=== PATIENT | male | born 1960 | race Caucasian/White ===

== ENCOUNTER 2017-12-03 08:01 | Day surgery (SDC) | payer MEDICAID ==
[~2017-12-03] VITALS: Ht 175.3 cm; Wt 100.2 kg
--- NOTE | ~2017-12-03 | OP ---
PATIENT NAME: FAUSTO VILLARREAL MEDICAL RECORD: [id number] :58 LOCATION:D.[facility] ADMISSION DATE: SURGEON: ALVIN BARNES MD DATE OF OPERATION: 12/03/2017 REFERRING PHYSICIAN: Bandar Osman MD DIAGNOSES: ESRD and inguinal hernia. OPERATION PERFORMED: Creation of left brachiocephalic AV fistula and performance of left upper extremity venogram. SURGEON: Alvin Barnes MD ANESTHESIA: General per LMA by BALANCING MACHINE SET UP WORKER, also regional nerve block. PREOP NOTE: Mr. Villarreal is a very nice 57-year-old white male patient with end-stage renal disease, presently dialyzing with peritoneal catheter. He has a symptomatic reducible inguinal hernia, which needs repair. He has no long-term hemodialysis access. He is brought to the hospital, to the operating room today to create an access. The plan will be to wait until this has matured and provides reliable hemodialysis access before discontinuing peritoneal dialysis for a short period to repair his hernia. PROCEDURE IN DETAIL: Under anesthesia, general and regional block, the patient was prepped and draped in sterile manner. I applied nitroglycerin ointment and used a Franklin drain as proximal venous tourniquet and did an ultrasound exam and saw that the brachial artery was of good quality and good caliber. The basilic and cephalic veins in the upper arm were quite satisfactory for use. I made a transverse antecubital incision and exposed the median cubital veins and median antebrachial vein. I elected to go with the cephalic vein outflow. The tributaries were ligated with clips and 3-0 Vicryl and divided. The vein was beveled and treated with topical papaverine and flushed with heparin and saline. A microcatheter was inserted and a venogram performed by injecting contrast. This column of contrast was followed all the way to the right atrium. There were no obstructions. No other venous abnormality was identified. The brachial artery was then exposed and controlled with Silastic loops. The artery was opened and flushed proximally and distally with heparinized saline. An end-to-side ixos-ts-azjkaa anastomosis was then performed with running 7-0 Prolene. When completed, the suture line was hemostatic and there was excellent flow in the fistula when the loops were released. There was an excellent continuous pulsatile Doppler flow signal as well as a strong palpable thrill. The wound was then closed with interrupted inverted 3-0 Vicryl and running intracuticular 4-0 Monocryl and Dermabond glue. They were dressed with Maxorb Ag, Tegaderm, and Cavilon skin prep. The patient was awakened and taken to recovery room. I expect the patient will go home today and follow up with me in my office and have a dressing change next week. In the meantime, he can leave the original operative dressing intact and wash over with soap and water in the shower as needed. He is to continue all of same medications, diet, and dialysis routine. He will wear a sling for his left arm for little while until the regional nerve block wears off. Blood loss during the operation was trivial, possibly 5 cc, and certainly was not replaced. No drain was used and no surgical specimen was OPERATIVE REPORT [id number] FAUSTO VILLARREAL submitted for histopathology. TRANSINT:[id number] Voice Confirmation ID: [id number] DOCUMENT ID: [id number] ALVIN BARNES MD at 1410 CC: BANDAR OSMAN [id number] DICTATION DATE: 12/03/17 1450 HYDROLOGICAL TECHNICAL OFFICER: 12/03/17 1517 [facility] 12/03/17 [facility] [address] [place] [address]
[2017-12-03 08:18] LABS: BASOPHILS 0.1 % (0-2); EOSINOPHILS 0 % (0-7); HEMATOCRIT 35.2 % (42.0-54.0); HEMOGLOBIN 11.9 g/dL (13.5-17.5); IMMATURE GRANULOCYTES 0.3 % (0-5); LYMPHOCYTES 6.3 % (15-50); MCH 29.8 pg (26.0-34.0); MCHC 33.8 g/dL (31.0-37.0); MEAN PLATELET VOLUME 10.3 fL (7.4-10.4); MONOCYTES 5.6 % (2-11); NEUTROPHILS 87.7 % (40-80); PLATELET COUNT 218 10x3/uL (130-400); RDW 13.9 % (11.5-14.5); WBC 15.8 10x3/uL (4.8-10.8)
[2017-12-03 08:29] LABS: APTT 26.4 SECONDS (22.8-39.4); INR 1.11 (0.85-1.17); PROTIME 13.8 SECONDS (11.6-15.0)
[2017-12-03 08:37] LABS: ANION GAP 16.7 mmol/L (8-16); CALCIUM 9.8 mg/dL (8.5-10.1); CARBON DIOXIDE 25.5 mmol/L (21.0-32.0); CREATININE - SERUM 7.4 mg/dL (0.6-1.3); POTASSIUM - SERUM 4.2 mmol/L (3.5-5.1)
[2017-12-03 10:04] VITALS: Ht 175.3 cm; Wt 100.2 kg
[2017-12-03] MEDS ORDERED: PREDNISONE10 MG (10:27)
[2017-12-03] MEDS ORDERED: BENADRYL50 MG (10:28)
[2017-12-03] MEDS ORDERED: LASIX80 MG PO (10:28)
[2017-12-03] MEDS ORDERED: COREG25 MG PO (10:29)
[2017-12-03] MEDS ORDERED: ULTRAM50 MG PO ×2 (10:30→14:34)
[2017-12-03] MEDS ORDERED: LIPITOR40 MG PO (10:31)
[2017-12-03] MEDS ORDERED: NORVASC10 MG PO (10:36)
[2017-12-03] MEDS ORDERED: NEURONTIN 300300 MG PO (10:39)
[2017-12-03] MEDS ORDERED: ASPIRIN325 MG PO (10:40)
[2017-12-03] MEDS ORDERED: RENAGEL800 MG PO (10:40)
[2017-12-03] MEDS ORDERED: ROCALTROL0.5 MCG PO (10:44)
[2017-12-03] MEDS ORDERED: OMEPRAZOLE20 M1 PO (11:09)
[2017-12-03] MEDS ORDERED: SENSIPAR30 MG PO (11:10)
[2017-12-03] MEDS ORDERED: LEVEMIR100 U/M1 SC (11:12)
[2017-12-03] MEDS ORDERED: HUMULIN R100 U/ML (11:16)
[2017-12-03] MEDS ORDERED: RENVELA800 MG PO (11:17)
[2017-12-03] MEDS ORDERED: GENTAMICIN SULF30 G1 TOPICAL (11:19)
== END 2017-12-03 16:50 | disposition home or self-care (01) ==
LOC: D.OPS 08:01
PROVIDERS: Surgery
DX: I12.0 Hypertensive chronic kidney disease with stage 5 chronic kidney disease or end stage renal disease (principal); E11.22 Type 2 diabetes mellitus with diabetic chronic kidney disease; N18.6 End stage renal disease; Z99.2 Dependence on renal dialysis; Z86.73 Personal history of transient ischemic attack (TIA), and cerebral infarction without residual deficits; K40.90 Unilateral inguinal hernia, without obstruction or gangrene, not specified as recurrent

== ENCOUNTER 2018-06-20 06:07 | Day surgery (SDC) | payer MEDICARE ==
[2018-06-19 15:47] LABS: BASOPHILS 0.5 % (0-2); EOSINOPHILS 3.6 % (0-7); HEMATOCRIT 34.2 % (42.0-54.0); HEMOGLOBIN 11.3 g/dL (13.5-17.5); IMMATURE GRANULOCYTES 0.2 % (0-5); LYMPHOCYTES 21.2 % (15-50); MCV 87.7 fL (80.0-100.0); MEAN PLATELET VOLUME 10.1 fL (7.4-10.4); MONOCYTES 9.5 % (2-11); PLATELET COUNT 211 10x3/uL (130-400); RDW 14.6 % (11.5-14.5)
[2018-06-19 15:50] LABS: APTT 30.5 SECONDS (22.8-39.4); INR 1.11 (0.85-1.17); PROTIME 13.8 SECONDS (11.6-15.0)
[2018-06-19 15:51] LABS: ANION GAP 18.7 mmol/L (8-16); CALCIUM 9.2 mg/dL (8.5-10.1); CARBON DIOXIDE 23.4 mmol/L (21.0-32.0); CREATININE - SERUM 7.4 mg/dL (0.6-1.3); POTASSIUM - SERUM 4.1 mmol/L (3.5-5.1)
[~2018-06-20] VITALS: Ht 175.3 cm; Wt 94.8 kg
[~2018-06-20 06:07] MED LIST: ASPIRIN325 MG PO; BENADRYL50 MG; COREG25 MG PO; GENTAMICIN SULF30 G1 TOPICAL; HUMULIN R100 U/ML; LASIX80 MG PO; LEVEMIR100 U/M1 SC; LIPITOR40 MG PO; NEURONTIN 300300 MG PO; NORVASC10 MG PO; OMEPRAZOLE20 M1 PO; PREDNISONE10 MG; RENAGEL800 MG PO; RENVELA800 MG PO; ROCALTROL0.5 MCG PO; SENSIPAR30 MG PO; ULTRAM50 MG PO
[2018-06-20 06:23] VITALS: Ht 175.3 cm; Wt 94.8 kg
[2018-06-20] MEDS ORDERED: DILAUDID2 MG PO (09:46)
--- NOTE | 2018-06-20 10:10 | NUR ---
REC'D FROM RR. FAMILY/FRIEND AT BEDSIDE. DRESSING CDI TO RIGHT GROIN AREA. ICE WATER BROUGHT TO PT.
--- NOTE | 2018-06-20 10:45 | NUR ---
SPOKE WITH RISA DEVI REGARDING DR BARNES'S ORDER TO HOLD OFF ON PD AND BEGAN HEMODIALYSIS UNTIL CLEARED BY HIM.
--- NOTE | 2018-06-20 11:00 | NUR ---
JASWINDER ELLISYazmin SERVED TO PATIENT.
--- NOTE | 2018-06-20 11:10 | NUR ---
Denise ESQUIVEL, ANP HERE AND SPOKE WITH PATIENT REGARDING A CHANGE IN DIALYSIS AND GAVE HIM A CHAIR TIME IN [place] FOR SaturdayJULY 01 AT 0700. INFORMED HIM HE WILL DIALYZE ON LSCI-[id number]-RAI UNTIL CLEARED BY DR BARNES. VERBALIZED UNDERSTANDING.
--- NOTE | 2018-06-22 19:09 | OP ---
PATIENT NAME: FAUSTO VILLARREAL MEDICAL RECORD: [id number] :58 LOCATION:[facility] ADMISSION DATE: SURGEON: ALVIN BARNES MD DATE OF OPERATION: 06/20/2018 REFERRED BY: Bandar Osman MD PREOPERATIVE DIAGNOSES: Right indirect inguinal hernia, end-stage renal disease and dependence on dialysis. POSTOPERATIVE DIAGNOSES: Right indirect inguinal hernia, end-stage renal disease and dependence on dialysis. SURGEON: Alvin Barnes MD ANESTHESIA: General with LMA per [facility] [employer] [facility]. OPERATION PERFORMED. Repair of right indirect inguinal hernia with Bard Marlex plug and patch, size extra-large. PREOPERATIVE NOTE: Mr. Villarreal is a 57-year-old white male patient with end-stage renal disease, stable on peritoneal dialysis who has developed a large reducible right inguinal hernia. He is brought to the operating room for its repair. DESCRIPTION OF PROCEDURE: Under general anesthesia in supine position, the patient was prepped and draped in sterile manner. A transverse incision was made and the soft tissues divided with electrocautery down to the external oblique aponeurosis, which was opened parallel to its fibers through the external ring. The cord was mobilized and cremasteric and fatty tissues divided with electrocautery and a large indirect inguinal hernia sac was dissected from the cord structures. It was ligated above the level of the internal ring with 3-0 Vicryl and the redundant sac was excised and sent to pathology for histopathology. The internal ring was then filled with a size extra-large Marlex light plug. This was sutured with interrupted 3-0 Vicryl sutures to the margins of the internal ring and the floor of the canal was then covered with a Marlex patch, which was sutured to the shelving edge of inguinal ligament inferiorly to the pubic tubercle medially and to the internal oblique aponeurosis and fascia superiorly and laterally. The patch was cut so that its arms would embrace the spermatic cord at the level of the internal ring, creating a new internal ring and the wound was then infiltrated generously with 0.25% Marcaine without epinephrine. The external oblique aponeurosis was then approximated over the cord with interrupted 3-0 Vicryl. The Miranda's fascia was approximated with interrupted inverted 3-0 Vicryl and skin was closed with running intracuticular 4-0 Monocryl. The incision was sealed with glue and dressed with Maxorb Ag, Tegaderm, and Cavilon skin prep and the patient awakened and taken to the recovery room. Blood loss during the operation was about 5 cc. None was replaced. Sponges, instruments, and needles were accounted for. No drain was used. The surgical specimen consisted of the indirect inguinal hernia sac. PLAN: The patient will go home today and use ice off and on. He is given a prescription for Dilaudid 2 mg 10 tablets. He can take 1 every 6 hours as needed for pain. He is encouraged if possible instead to take plain Tylenol, use ice off and on and wear briefs or a jockey strap or athletic supporter as needed for comfort. I will have him back to see me in my office in about 10 OPERATIVE REPORT [id number] FAUSTO VILLARREAL days to 2 weeks. In the meantime, starting tomorrow, he is to do hemodialysis instead of peritoneal dialysis and he will continue on hemo until I have released him. TRANSINT:[id number] Voice Confirmation ID: [id number] DOCUMENT ID: [id number] ALVIN ABRNES MD at 1909 CC: BANDAR OSMAN [id number] DICTATION DATE: 06/20/18 0959 BETTING CLERKS: 06/20/18 1046 [facility] 06/20/18 [facility] [address] [place] [address]
== END 2018-06-20 12:40 | disposition home or self-care (01) ==
LOC: D.OPS 06:07
PROVIDERS: Anesthesiology; Surgery
DX: K40.90 Unilateral inguinal hernia, without obstruction or gangrene, not specified as recurrent (principal); N18.6 End stage renal disease; Z99.2 Dependence on renal dialysis

== ENCOUNTER 2018-11-07 23:15 | Inpatient (IN) | payer MEDICARE ==
[~2018-11-07 23:15] MED LIST changes: +DILAUDID2 MG PO
--- NOTE | 2018-11-08 01:00 | NUR ---
RECEIVED FROM [facility] IN [place], PLACED ON TELEMTRY, PT HAS LAVF AND PD CATH, R.HAND-IV, HISTORY AND MEDS COMPLETE, FAMILY AT BEDSIDE, CALL LIGHT IN REACH, WILL CONTINUE PLAN OF CARE
[2018-11-08] MEDS ORDERED: LEVODOPA (01:02)
[2018-11-08] MEDS ORDERED: LIPITOR40 MG PO (01:02)
[2018-11-08] MEDS ORDERED: CARBIDOPA (01:02)
[2018-11-08 02:02] VITALS: BP 206/91; BMI 29.6
[2018-11-08 02:19] LABS: BASOPHILS 0.5 % (0-2); EOSINOPHILS 2.2 % (0-7); HEMATOCRIT 27.4 % (42.0-54.0); IMMATURE GRANULOCYTES 0.5 % (0-5); LYMPHOCYTES 24.9 % (15-50); MCH 28.5 pg (26.0-34.0); MCHC 32.8 g/dL (31.0-37.0); MCV 86.7 fL (80.0-100.0); MEAN PLATELET VOLUME 8.9 fL (7.4-10.4); MONOCYTES 9.8 % (2-11); NEUTROPHILS 62.1 % (40-80); PLATELET COUNT 198 10x3/uL (130-400); RBC 3.16 10x6/uL (4.20-6.10); RDW 15.2 % (11.5-14.5); WBC 12.9 10x3/uL (4.8-10.8)
[2018-11-08 02:30] VITALS: BP 156/82
[2018-11-08 02:55] LABS: ALBUMIN 2.9 g/dL (3.4-5.0); ALKALINE PHOSPHATASE 82 U/L (46-116); ALT (SGPT) 11 U/L (10-68); BILIRUBIN - TOTAL 0.63 mg/dL (0.2-1.3); CALCIUM 8.5 mg/dL (8.5-10.1); CARBON DIOXIDE 24.1 mmol/L (21.0-32.0); CHLORIDE - SERUM 100 mmol/L (98-107); CKMB 2.2 U/L (0.0-3.6); CREATINE KINASE 96 UL (21-232); CREATININE - SERUM 13.3 mg/dL (0.6-1.3); MAGNESIUM - SERUM 2.1 mg/dL (1.8-2.4); POTASSIUM - SERUM 4.3 mmol/L (3.5-5.1); PROTEIN - SERUM 6.7 g/dL (6.4-8.2); SODIUM 140 mmol/L (136-145); UREA NITROGEN 77 mg/dL (7-18); eGFR NON AFRICAN AMERICAN 4 mL/min (90-120)
[2018-11-08 02:56] LABS: CALC OSMOLALITY 302 mosm/kg (275-300); GLUCOSE 124 mg/dL (74-106)
[2018-11-08 02:58] LABS: TROPONIN-I 0.144 ng/mL (0.000-0.060)
[2018-11-08 04:00] VITALS: BP 117/59
[2018-11-08 06:51] VITALS: BMI 29.5
--- NOTE | 2018-11-08 07:00 | NUR ---
RECEIVED REPORT. ASSUMED CARE OF PATIENT. CALL LIGHT WITHIN REACH. PATIENT EASILY AROUSED. RESP EVEN AND UNLABORED. FEMALE AT BEDSIDE IN CHAIR ASLEEP. NO DISTRESS. DENIES NEEDS AT THIS TIME.
[2018-11-08 08:10] VITALS: BP 143/74
[2018-11-08] MEDS ORDERED: PROTONIX20 MG PO (09:21)
[2018-11-08 09:46] VITALS: BMI 29.5
--- NOTE | 2018-11-08 10:25 | NUR ---
EKG COMPLETE AT THIS TIME. NSR. RATE 77
--- NOTE | 2018-11-08 11:00 | NUR ---
NEW ORDER RECIEVED FOR PD AT THIS TIME. PD FLUID NEEDS TO WARM. PD FLUID PLACED TO WARM H2O FOR WARMING. PATIENT MADE AWARE OF NEW ORDERS.
[2018-11-08 11:15] LABS: % SATURATION 53 % (15-55); IRON 92 ug/dl (35-150); TOTAL IRON BIND CAPACITY 173 ug/dl (260-445); UNSAT IRON BIND CAPACITY 81 ug/dl (150-375)
[2018-11-08 11:32] LABS: CKMB 2.8 U/L (0.0-3.6); CREATINE KINASE 110 UL (21-232)
[2018-11-08 11:38] LABS: TROPONIN-I 0.144 ng/mL (0.000-0.060)
[2018-11-08 11:40] VITALS: BP 168/75
--- NOTE | 2018-11-08 11:44 | NUR ---
HARDWOOD FLOOR SANDER AT BEDSIDE AT THIS TIME FOR ECHO.
--- NOTE | 2018-11-08 12:01 | NUR ---
2ND PREPARATION SUPERVISOR FREEZING WAITING IN LINE AT PATIENT DOOR TO DO PROCEDURE. STILL UNABLE TO DO PD DUE TO ECHO'S AND ULTRASOUNDS ORDERED.
--- NOTE | 2018-11-08 12:25 | NUR ---
PATIENT NOW EATING. INFORMED PATIENT PD WILL TAKE PLACE SOON HE IS FINISHED EATING.
--- NOTE | 2018-11-08 12:57 | NUR ---
PATIENT RECEIVING PD AT THIS TIME. NO DISTRESS.
[2018-11-08 15:51] LABS: CKMB 2.9 U/L (0.0-3.6); CREATINE KINASE 120 UL (21-232)
[2018-11-08 15:55] LABS: TROPONIN-I 0.135 ng/mL (0.000-0.060)
--- NOTE | 2018-11-08 16:21 | NUR ---
PATIENT IS UNABLE TO HAVE MRI AT THIS TIME DUE TO METAL CONNECTOR ON PD CATH. METAL CONNECTOR IS ON TUBING THAT IS UNABLE TO BE REMOVED FROM PATIENT. CALLED PHIL ESQUIVEL AND SHE SAID UNTIL WE CAN FIND OUT EXACTLY WHAT THE PART IS MADE OF, CANCEL THE MRI. , RADIOLOGIST WILL NOT PROCEEDE WITH THE MRI UNTIL SERIAL NUMBERS ARE PROVIDED AND THE PART IS ABLE TO BE RESEARCHED THE MRI COULD CAUSE HARM TO THE PATIENT(BURNED OR CATHETER RIPPED OUT). PHIL SAID IS HAS TO BE PAGED OR IS CALLED THEN LET HIM KNOW AT THAT TIME WHY THE MRI WAS NOT COMPLETED. THIS TRY OUT PERSON WORKING TO CONTACT FACILITY THAT PLACED PD CATH TO GAIN ADDITIONAL INFORMATION.
--- NOTE | 2018-11-08 16:30 | NUR ---
PATIENT HAS METAL ON PD CATHETER. UNKNOWN TYPE OR BRAND. PATIENT DOES NOT KNOW WHICH DR PUT IT IN OR WHICH HOSPITAL IT WAS PUT IN. YULIET, NURSE, AND PHIL, NURSE PRACTIONER, NOTIFIED CANNOT DO MRI UNTIL THIS IS CLEARED, PER DR MUSTAFA.
--- NOTE | 2018-11-08 17:08 | NUR ---
SITTING TO SIDE OF BED CONSUMING PM MEAL. WILL START PD AFTER PATIENT HAS FINISHED EATING DINNER.
--- NOTE | 2018-11-08 18:34 | NUR ---
PATIENT VERY SLOW TO FILL WITH PD. STILL FILLING AT THIS TIME AND FILL TIME WAS INITIATED AT 181. SLOW BUT STEADY FILL.
--- NOTE | 2018-11-08 19:23 | NUR ---
RECIEVED LAYING IN BED WITH EYES OPEN AND TV ON. ALERT AND ORIENTED X4. UP AD KAMALA. PD TUBING TO MID LOWER ABD. AVF TO LEFT ARM HAS GOOD BRUI AND TRILL. IV TO RIGHT HAND SL.. TELEMETRY IN PLACE. DENIES ANY NEEDS.
[2018-11-08 20:00] VITALS: BP 168/65
[2018-11-08 21:27] LABS: CKMB 2.8 U/L (0.0-3.6); CREATINE KINASE 125 UL (21-232)
[2018-11-08 21:29] LABS: TROPONIN-I 0.112 ng/mL (0.000-0.060)
[2018-11-09] VITALS: BP 142/106
[2018-11-09 04:00] VITALS: BP 195/75
[2018-11-09 06:20] LABS: BASOPHILS 0.6 % (0-2); HEMATOCRIT 29.1 % (42.0-54.0); HEMOGLOBIN 9.7 g/dL (13.5-17.5); IMMATURE GRANULOCYTES 0.4 % (0-5); LYMPHOCYTES 24.9 % (15-50); MCHC 33.3 g/dL (31.0-37.0); MCV 86.9 fL (80.0-100.0); MEAN PLATELET VOLUME 9.4 fL (7.4-10.4); NEUTROPHILS 61.1 % (40-80); RBC 3.35 10x6/uL (4.20-6.10); RDW 15.1 % (11.5-14.5); WBC 14.2 10x3/uL (4.8-10.8)
[2018-11-09 06:31] LABS: PLATELET COUNT 248 10x3/uL (130-400)
--- NOTE | 2018-11-09 06:36 | NUR ---
CHECKED BLOOD SUGAR EARLIER AND IT WAS 39. GAVE SNACK AND RECHECKED AT 50. REHECK AGAIN AND 75. EATING A SANDWICH BOX AT THIS TIME. PT WAS ABLE TO ANSWER QUESTIONS APPROP. WHEN BLOOD SUGAR 39. DID BECOME DIAPHORETIC AND BED LINENS CHANGED AND GOWN. PT STATES HE HAS FELT THIS WAY BEFORE AND DID NOT KNOW WHAT IT WAS. WILL REPORT TO ONCOMMING.
--- NOTE | 2018-11-09 07:00 | NUR ---
RECEIVED REPORT. ASSUMED CARE OF PATIENT. RESTING AND NOTED TO BE SNORING. AROUSED PATIENT WITH VERBAL AND TOUCH TO SHOULDER. PATIENT ABLE TO ANSWER QUESTIONS APPROPRIATELY AT THIS TIME. NO DISTRESS.
[2018-11-09 07:54] LABS: ANION GAP 26.3 mmol/L (8-16); CALCIUM 9.3 mg/dL (8.5-10.1); CREATININE - SERUM 13.7 mg/dL (0.6-1.3); POTASSIUM - SERUM 4.3 mmol/L (3.5-5.1)
--- NOTE | 2018-11-09 08:00 | NUR ---
DEAN CALLS AT THIS TIME FROM LAB TO REPORT CRITICAL GLUCOSE DRAWN AT 0439 THAT RESULTED AT 39. INFORMED HER WE HAVE ALREADY CHECKED PATIENT X 3 AND TREATED AND PATIENT IS NOW UP TO 75. THANKED HER FOR CALLING THOUGH AT THIS TIME.
[2018-11-09 08:36] VITALS: BP 136/105
[2018-11-09 11:41] VITALS: BP 199/91
--- NOTE | 2018-11-09 11:53 | NUR ---
FSBS 246. 8 UNITS ADMINITERED PER SLIDING SCALE. NO DISTRESS.
[2018-11-09 15:47] VITALS: BP 136/72
--- NOTE | 2018-11-09 16:34 | NUR ---
FSBS 82. NO INSULIN PER SLIDING SCALE.
[2018-11-09 16:56] LABS: MACROPHAGES BF 32 %; MESOTHELIALS BF 11 %; NEUT - BF 7 %
--- NOTE | 2018-11-09 18:06 | NUR ---
TOLERATING PD WELL AT THIS TIME. NO DISTRESS.
--- NOTE | 2018-11-09 19:36 | NUR ---
RECEIVED REPORT, WILL ASSUME CARE OF PT, SITTING ON SIDE OF BED, DENIES ANY NEEDS AT THIS TIME, CALL LIGHT IN REACH, WILL CONTINUE PLAN OF CARE
[2018-11-09 20:36] VITALS: BP 189/88
[2018-11-10] VITALS: BP 160/86
--- NOTE | 2018-11-10 03:03 | NUR ---
I have reviewed this patient and I concur with the Shift Assessment completed by the Licensed Practical Nurse today this shift.
[2018-11-10 04:00] VITALS: BP 159/88
[2018-11-10 05:40] LABS: BASOPHILS 0.9 % (0-2); EOSINOPHILS 2.9 % (0-7); HEMATOCRIT 28.9 % (42.0-54.0); HEMOGLOBIN 9.5 g/dL (13.5-17.5); IMMATURE GRANULOCYTES 0.3 % (0-5); LYMPHOCYTES 24.4 % (15-50); MCH 28.5 pg (26.0-34.0); MCHC 32.9 g/dL (31.0-37.0); MCV 86.8 fL (80.0-100.0); MEAN PLATELET VOLUME 8.9 fL (7.4-10.4); MONOCYTES 9.4 % (2-11); NEUTROPHILS 62.1 % (40-80); PLATELET COUNT 211 10x3/uL (130-400); RBC 3.33 10x6/uL (4.20-6.10); RDW 14.7 % (11.5-14.5); WBC 12.6 10x3/uL (4.8-10.8)
[2018-11-10 06:03] LABS: CALCIUM 9.2 mg/dL (8.5-10.1); CARBON DIOXIDE 22.1 mmol/L (21.0-32.0); CREATININE - SERUM 12.8 mg/dL (0.6-1.3); POTASSIUM - SERUM 4.1 mmol/L (3.5-5.1)
--- NOTE | 2018-11-10 07:37 | NUR ---
REPORT RECEIVED. WILL CONTINUE WITH POC. PT CURRENTLY LYING SUPINE. CALL LIGHT W/I REACH. PT IS CURRENTLY RESTING. RR EVEN AND UNLABORED ON RA. R.UPPER ARM IS SALINE LOCKED. NO S/S OF DISTRESS NOTED. PT DENIES ANY NEEDS AT THIS TIME. WILL CTM.
[2018-11-10 08:25] VITALS: BP 166/41
--- NOTE | 2018-11-10 09:55 | CN ---
PATIENT NAME:FAUSTO HOLLAND MEDICAL RECORD: [id number] : 58 LOCATION:[facility] D.2133 ADMIT DATE: 11/07/18 ACCOUNT: [id number] CONSULTING PHYSICIAN: EITAN CAMPBELL MD REFERRING PHYSICIAN: ANN FERNANDO MD DATE OF CONSULTATION: 11/08/2018 HISTORY OF PRESENT ILLNESS: A 58-year-old gentleman with a history of end-stage renal disease, on peritoneal dialysis, transferred for higher level of care secondary to 3-4 day history of confusion, postural instability, syncope. Reports labile blood pressure, systolic and diastolic. His reports also episodes of hypothermia with a temperature down into the 93 range. He is found to have UTI, was transferred here for further evaluation. PAST MEDICAL HISTORY: Includes; 1. History of diabetes mellitus. 2. Hypertension. 3. Dyslipidemia. 4. Chronic renal insufficiency as described above. 5. Peripheral neuropathy. MEDICATIONS: Typically include insulin per scale, Protonix 20 every day, Lasix 80 every day, aspirin 325 every day, Neurontin 300 at bedtime, tramadol 50 every 6 hours p.r.n., atorvastatin 40 every day, carvedilol 25 every day. ALLERGIES: IODINE, HYDROCODONE. SOCIAL HISTORY: Lives in [place]. He is a nonsmoker. As a general basis, he usually takes of all his ADLs. No set exercise program. REVIEW OF SYSTEMS: The patient reports easy bruising but reports no swollen glands. The patient reports no fever, no night sweats, no significant weight gain, no significant weight loss. No significant exercise tolerance. The patient reports no dry eyes, no irritation, no vision change. Patient reports no difficulty hearing and no ear pain. Patient reports no frequent nose bleeds or nose and sinus problems. Patient reports on arm pain on exertion. No shortness of breath while lying down. No history of heart murmur. Patient reports no cough, no wheezing or coughing up blood. Patient reports no abdominal pain, no vomiting. Normal appetite. No diarrhea and not vomiting blood. No nausea and no constipation. Patient reports no incontinence. No difficulty urinating. No hematuria. No increased frequency. Patient reports no muscle aches. No weakness, no arthralgias, no back pain. No swelling of the extremities. Patient reports no abnormal mole, no jaundice, no rashes. Reports no loss of consciousness. No weakness and no numbness. No seizures, dizziness, or headaches. The patient reports no depression, no sleep disturbance, feeling safe in a relationship and no alcohol abuse. Patient reports on fatigue. Reports no runny nose or sinus pressure. No itching, no hives, and no frequent sneezing. PHYSICAL EXAMINATION: GENERAL: Pleasant gentleman in no acute distress, appears stated age. VITAL SIGNS: Blood pressure 168/75, pulse 70 and regular, temperature currently is normal as well. HEENT: Normocephalic, atraumatic. NECK: No bruits noted. CONSULT REPORT [id number] AMALIAFAUSTO HEART: Regular, II/ systolic ejection murmur. LUNGS: Good air excursion. ABDOMEN: Soft, nontender. EXTREMITIES: Pulses 2+. No edema. EKG without acute change. IMPRESSION: Difficult to interpret elevated troponin in view of chronic renal sufficiency. We will check echocardiographic study for focal wall motion, additionally carotid Doppler given history of syncope. TRANSINT:[id number] Voice Confirmation ID: [id number] DOCUMENT ID: [id number] EITAN CAMPBELL MD at 0955 CC: [id number] DICTATION DATE: 11/08/18 1218 RESIDENTIAL CARE FACILITY MANAGER: 11/08/18 1707 ADM IN [place] [address] [place] [address]
--- NOTE | 2018-11-10 09:55 | EC ---
PATIENT:FAUSTO HOLLAND DATE OF SERVICE: 11/07/18 SEX: M MEDICAL RECORD: [id number] DATE OF : 58 LOCATION:D.M2 D.213 AGE OF PATIENT: 58 ADMISSION DATE: 11/07/18 REFERRING PHYSICIAN: INTERPRETING PHYSICIAN: EITAN CAMPBELL MD ECHOCARDIOGRAM REPORT ECHO CHARGES 4 ECHO COMPLETE Date: 11/08/18 CLINICAL DIAGNOSIS: CHF/SYNCOPE ECHOCARDIOGRAPHIC MEASUREMENTS (adult normal given) AC root (d.<3.7cm) 3.7 cm LV Septum d (<1.2 cm> 1.3 cm Valve Excursion 1.5 cm LV Septum (systole) 1.6 cm Left Atria (s.<4.0cm> 3.9 cm LVPW d(<1.2cm) 1.5 cm RV (d.<2.3cm) 2.9 cm LVPW (sytole) 2.0 cm LV diastole(<5.6CM) 5.9 cm MV E-F(>70mm/sec) cm LV systole 4.0 cm LVOT Diameter 1.9 cm MV exc.(>10mm) cm Est.ejection fraction (50-75%) % DOPPLER: LVIT cm/sec A 113 cm/sec E 89.0 cm/sec LA cm/sec RVSP 29.0 mmHg LVOT 127 cm/sec AOP1/2T m/s Asc. Ao 158 cm/sec RVOT 96.0 cm/sec RA cm/sec PA 106 cm/sec AV Gradient Peak 10.0 mmHg AV Mean 5.2 mmHg AV Area 2.2 cm MV Gradient Peak 6.3 mmHg MV Mean 2.0 mmHg MV Area cm COMMENTS: Separations Scientist: Michelle RODASOE Claim Service Representative: 3 Dr. Grimaldo TAPE# PACS Pericardial Effusion N DATE OF SERVICE: 11/09/2018 Adequate 2-D echo, color-flow and spectral Doppler, and M-mode. Borderline LVH. LV internal dimensions are normal. Wall motion is normal. EF is 55%. Aortic valve sclerosis without stenosis by Doppler interrogation. Left atrium is normal at 3.9 cm. Mitral valve shows no prolapse. Trace MR. Right-sided chambers are grossly normal. Trace TR. TRANSINT:[id number] Voice Confirmation ID: [id number] DOCUMENT ID: [id number] ECHOCARDIOGRAM REPORT [id number] FAUSTO HOLLAND,EITAN Ferreira MD at 0955 CC: [id number] DICTATION DATE: 11/09/18 1131 PROJECT LEAD: 11/09/[address] [facility] [address] [place] [id number]
--- NOTE | 2018-11-10 11:22 | NUR ---
PD PERFORMED. 2299 TAKEN OFF. 1999 INSTILLED. FSBS WAS 258 @1115. 10 UNITS OF INSULIN ADMINSITERED. PT DENIES ANY NEEDS. WILL CTM.
[2018-11-10 11:28] VITALS: BP 135/78
[2018-11-10 15:27] VITALS: BP 155/77
--- NOTE | 2018-11-10 17:57 | NUR ---
PD PERFORMED. 2099 PULLED OFF AND RECORDED. 1999 INSTILLED. PT CURRENTLY LYING SEMI FOWLERS. CALL LIGHT W/I REACH. AAO X4 FAMILY AT BEDSIDE. PT DENIES ANY NEEDS. WILL CTM.
[2018-11-10 20:00] VITALS: BP 162/63
--- NOTE | 2018-11-10 20:34 | NUR ---
EVENING ROUNDS COMPLETED. VSS, AAOX4, NO S/S OF RESP DISTRESS. PD SITE C/D/I. SPOUSE AT BEDSIDE. PT DENIES ANY FURTHER NEEDS AT THIS TIME. WILL CPOC. CL WITHIN REACH.
--- NOTE | 2018-11-10 23:39 | NUR ---
PD STARTED. PT BP 190/67. PRN 0.1MG CLONIDINE GIVEN AT THIS TIME. WILL CTM. CL WITHIN REACH.
[2018-11-11] VITALS: BP 190/67
--- NOTE | 2018-11-11 02:53 | NUR ---
PT R.UPPER ARM PIV INFILTRATED. REMOVED IV, APPLIED 2X2 GAUZE AND TAPED. RESTARTED A NEW PIV R.WRIST 22G X2 STICK PT TOLERATE WELL. PT VOICED THANKS. DENIES ANY FURTHER NEEDS AT THIS TIME. WILL CPOC.
[2018-11-11 04:00] VITALS: BP 147/66
[2018-11-11 06:31] LABS: BASOPHILS 0.5 % (0-2); EOSINOPHILS 2.4 % (0-7); HEMATOCRIT 29.9 % (42.0-54.0); HEMOGLOBIN 9.8 g/dL (13.5-17.5); IMMATURE GRANULOCYTES 0.5 % (0-5); LYMPHOCYTES 24.5 % (15-50); MCH 28.6 pg (26.0-34.0); MCHC 32.8 g/dL (31.0-37.0); MCV 87.2 fL (80.0-100.0); MEAN PLATELET VOLUME 9.6 fL (7.4-10.4); MONOCYTES 12.2 % (2-11); NEUTROPHILS 59.9 % (40-80); PLATELET COUNT 222 10x3/uL (130-400); RBC 3.43 10x6/uL (4.20-6.10); RDW 14.8 % (11.5-14.5); WBC 12.8 10x3/uL (4.8-10.8)
[2018-11-11 06:52] LABS: ANION GAP 20.4 mmol/L (8-16); C-REACTIVE PROTEIN 0.8 mg/dL (0.0-0.9); CALCIUM 9.8 mg/dL (8.5-10.1); CARBON DIOXIDE 25.4 mmol/L (21.0-32.0); CREATININE - SERUM 12.8 mg/dL (0.6-1.3); POTASSIUM - SERUM 3.8 mmol/L (3.5-5.1)
--- NOTE | 2018-11-11 07:39 | NUR ---
ROUNDING DONE WITH PATIENT TELLING ME THAT HE IS BEING DISCHARGED HOME. AWAITING FINAL ORDERS FROM PRIMARY CARE. ON HEART MONITOR SHOWING SR, HR 73. ON ROOM AIR. RIGHT FA PIV SEEN WITH SALINE LOCK. RESE. LEFT ARM WITH AVF, + BRUIT AND THRILL. PD CATH SEEN, ON PD EXCHANGE EVERY 6 HOURS. WILL MONITOR.
[2018-11-11 09:56] VITALS: BP 145/71
[2018-11-11] MEDS ORDERED: LEVEMIR FL100 UNIT/1 SC (12:01)
[2018-11-11] MEDS ORDERED: OMNICEF300 MG PO (12:02)
[2018-11-11 12:10] VITALS: BP 136/73
--- NOTE | 2018-11-11 14:22 | NUR ---
VERBAL AND WRITTEN DISCHARGE INSTRUCTIONS GIVEN TO PATIENT. SALINE LOCK REMOVED WITH CATH TIP INTACT. DISCHARGED HOME VIA WHEELCHAIR.
[2018-11-11 15:12] LABS: FOLATE (FOLIC ACID) - SERUM 7.3 ng/mL (>3.0)
--- NOTE | 2018-11-11 17:14 | MORECARE ---
CASE MANAGEMENT DISCHARGE SUMMARY PATIENT: FAUSTO HOLLAND UNIT: [id number] ADM DATE: 11/07/18 AGE: 58 : 58 SEX: M ROOM/BED: D.2133 AUTHOR: ANGEL,DOC PHYSICIAN: REFERRING PHYSICIAN: ANN FERNANDO MD DATE OF SERVICE: 11/11/18 Discharge Plan Patient Name: FAUSTO HOLLAND Facility: [facility] : 1960 Planned Disposition: Home Anticipated Discharge Date: 11/11/18 Discharge Date: 11/11/2018 Expected LOS: 4 Initial Reviewer: [email or web address] Initial Review Date: 11/11/2018 Generated: 11/11/18 6:14 pm Comments DCP- Discharge Planning Updated by [email or web address]: Lukasz Katz on 11/11/18 4:[address] Patient Name: FAUSTO HOLLAND Admission Status: ER Accout number: [id number] Admission Date: 11-07-2018 : 1960 Admission Diagnosis:SYNCOPE AND COLLAPSE Attending: ANN FERNANDO Current LOS: 4 Anticipated DC Date: 11-11-2018 Planned Disposition: Home Primary Insurance: MEDICARE A & B Discharge Planning Comments: CM MET WITH PT IN ROOM TO DISCUSS DISCHARGE PLANNING AND NEEDS. PT REPORTS LIVING AT HOME INDEPENDENTLY WITH HIS SISTER AND BROTHER IN [place]. PT HAS A CANE THAT HE USES AND A WALKER THAT HE DOES NOT CURRENTLY USE. PT HAS NO MEDICAL EQUIPMENT PROVIDER PREFERENCE. PT HAS NO OUTSIDE SERVICES ASSISTING IN THE HOME. PT DOES HIS OWN PD AT HOME 7 NIGHTS PER WEEK, SUPPLIES FROM [employer]. CM DISCUSSED AVAILABILITY OF HOME HEALTH, REHAB SERVICES AND MEDICAL EQUIPMENT. PT DENIES DISCHARGE NEEDS, REPORTS HIS SISTER WILL PICK HIM UP FOR DISCHARGE HOME. IMPORTANT MESSAGE FROM MEDICARE PROVIDED AND EXPLAINED. Phlebotomy Services Representative: Lukasz Katz DCPIA - Discharge Planning Initial Assessment Updated by [email or web address]: Lukasz Katz on 11/11/18 5:12 pm * Is the patient Alert and Oriented? Yes * How many steps to enter\exit or inside your home? NONE * PCP DR. BYRNE [place] * Pharmacy [facility] IN [place] * Preadmission Environment Home with Family * ADLs Independent * Equipment Cane Walker * Other Equipment NO MEDICAL EQUIPMENT PROVIDER PREFERENCE * List name and contact numbers for known caregivers / representatives who currently or will assist patient after discharge: AMIRA DAUGHERTY, SISTER, * Verbal permission to speak to the caregivers and representatives has been obtained from the patient. N/A * Community resources currently utilized Other * Please name any agencies selected above. [facility], 7 NIGHTS PER WEEK, SUPPLIES FROM [facility] * Additional services required to return to the preadmission environment? No * Can the patient safely return to the preadmission environment? Yes * Has this patient been hospitalized within the prior 30 days at any hospital? No Coverage Notice Reviewer: [email or web address] Zoe Katz Notice Issued Date-Time: 11/11/2018 12:40 Notice Type: IM Discharge Notice Notice Delivered To: Patient Relationship to Patient: County Surveyor Name: Delivery Method: HAND - Hand Delivered Shira Days: Prior Verbal Notification: Recipient Understood Notice: Yes Recipient Signature: Yes Med Rec Note Co-signed by Attending: Coverage Notice Comment: Patient Name: FAUSTO HOLLAND Page [phone] at 1714 All edits/amendments must be made on the electronic document DICTATION DATE: 11/11/181713 FOOD AND BEVERAGE LEAD: JOCELYNE 11/11/181713 RPT#: [id number] DC DATE:11/11/18 STATUS: DIS IN [facility] [address] [place] [address] END OF REPORT
== END 2018-11-11 14:23 | disposition home or self-care (01) | DRG 689 ==
LOC: D.ER 23:15 → D.M2 23:55
PROVIDERS: Family Medicine; Internal Medicine Nephrology; ADMIT Internal Medicine Nephrology; ATTEND Internal Medicine Nephrology
DX: N39.0 Urinary tract infection, site not specified (principal); N18.6 End stage renal disease; G93.41 Metabolic encephalopathy; I12.0 Hypertensive chronic kidney disease with stage 5 chronic kidney disease or end stage renal disease; N25.81 Secondary hyperparathyroidism of renal origin; R55 Syncope and collapse; T68.XXXA Hypothermia, initial encounter; E11.22 Type 2 diabetes mellitus with diabetic chronic kidney disease; E78.5 Hyperlipidemia, unspecified; Z86.73 Personal history of transient ischemic attack (TIA), and cerebral infarction without residual deficits; K21.9 Gastro-esophageal reflux disease without esophagitis; R79.89 Other specified abnormal findings of blood chemistry; D50.9 Iron deficiency anemia, unspecified; E03.9 Hypothyroidism, unspecified; Z87.891 Personal history of nicotine dependence; E11.649 Type 2 diabetes mellitus with hypoglycemia without coma

== ENCOUNTER 2018-12-15 05:32 | Inpatient (IN) | payer MEDICARE ==
[~2018-12-15] VITALS: Ht 175.3 cm; Wt 88.9 kg
[~2018-12-15 05:32] MED LIST changes: +CARBIDOPA; +LEVEMIR FL100 UNIT/1 SC; +LEVODOPA; +OMNICEF300 MG PO; +PROTONIX20 MG PO
--- NOTE | 2018-12-15 06:15 | NUR ---
PT LEFT ED VIA WC FOR CT.
--- NOTE | 2018-12-15 06:25 | NUR ---
PT RETURNED FROM CT VIA WC.
[2018-12-15 06:54] LABS: CREATINE KINASE 96 UL (21-232); TROPONIN-I < 0.017 ng/mL (0.000-0.060)
--- NOTE | 2018-12-15 07:00 | NUR ---
REPORT RECEIVED. HE CAME FROM ER AT 0637 THIS AM WITH C/O DIZZINESS AND HEADACHE. DENIES CURRENT HEADACHE JUST WANTS TO SLEEP BECAUSE HE HAS NOT RESTED WELL AT HOME. RESP EVEN WITHOUT LABOR. PD CATH DRESSING INTACT. FISTULA NOTED TO LEFT ARM. RIGHT A/C WITH SALINE LOCK INTACT. BBS ARE DIMINISHED. ORIENT TO ROOM INCLUDING HOW TO USE CL. CAREPLAN REVIEW DONE WITH SAFETY PRECAUTIONS IN PLACE.
[2018-12-15 08:47] VITALS: BP 178/75; BMI 29.0
[2018-12-15 09:12] VITALS: BP 178/75
[2018-12-15 09:44] LABS: ANION GAP 23.8 mmol/L (8-16); CALCIUM 9.2 mg/dL (8.5-10.1); CARBON DIOXIDE 22.9 mmol/L (21.0-32.0); CREATININE - SERUM 13.9 mg/dL (0.6-1.3); POTASSIUM - SERUM 5.7 mmol/L (3.5-5.1)
[2018-12-15 09:47] LABS: BASOPHILS 0.6 % (0-2); EOSINOPHILS 3.2 % (0-7); HEMATOCRIT 26.4 % (42.0-54.0); HEMOGLOBIN 8.9 g/dL (13.5-17.5); IMMATURE GRANULOCYTES 0.5 % (0-5); LYMPHOCYTES 25.6 % (15-50); MCH 30.2 pg (26.0-34.0); MCHC 33.7 g/dL (31.0-37.0); MCV 89.5 fL (80.0-100.0); MONOCYTES 13.3 % (2-11); NEUTROPHILS 56.8 % (40-80); PLATELET COUNT 212 10x3/uL (130-400); RBC 2.95 10x6/uL (4.20-6.10); RDW 14.8 % (11.5-14.5); WBC 10.8 10x3/uL (4.8-10.8)
[2018-12-15] MEDS ORDERED: SENSIPAR60 MG PO (10:13)
[2018-12-15 13:20] LABS: ALBUMIN 3.4 g/dL (3.4-5.0); ANION GAP 21.9 mmol/L (8-16); BILIRUBIN - TOTAL 0.73 mg/dL (0.2-1.3); CALCIUM 9.3 mg/dL (8.5-10.1); CARBON DIOXIDE 24.4 mmol/L (21.0-32.0); CREATININE - SERUM 14.1 mg/dL (0.6-1.3); POTASSIUM - SERUM 5.3 mmol/L (3.5-5.1); PROTEIN - SERUM 6.7 g/dL (6.4-8.2)
[2018-12-15 14:36] VITALS: Ht 175.3 cm; Wt 88.9 kg
--- NOTE | 2018-12-15 14:39 | MORECARE ---
CASE MANAGEMENT DISCHARGE SUMMARY PATIENT: FAUSTO HOLLAND UNIT: [id number] ADM DATE: 12/15/18 AGE: 58 : 58 SEX: M ROOM/BED: D.2135 AUTHOR: ANGEL,DOC PHYSICIAN: REFERRING PHYSICIAN: ANN FERNANDO MD DATE OF SERVICE: 12/15/18 Discharge Plan Patient Name: FAUSTO HOLLAND Facility: [facility]:[place] : 1960 Planned Disposition: Home Anticipated Discharge Date: Discharge Date: Expected LOS: Initial Reviewer: [email or web address] Initial Review Date: 12/15/2018 Generated: 12/15/18 3:39 pm Comments DCP- Discharge Planning Updated by [email or web address]: Lidia Leonard on 12/15/18 1:[address] Patient Name: FAUSTO HOLLAND Admission Status: ER Accout number: [id number] Admission Date: 12-15-2018 : 1960 Admission Diagnosis: Attending: ANN FERNANDO Current LOS: 1 Anticipated DC Date: Planned Disposition: Home Primary Insurance: MEDICARE A & B Discharge Planning Comments: CM met with patient to complete initial dc planning assessment. CM educated patient on the CM role and verbal consent given by patient to complete assessment. CM verified patient's address, phone number, and emergency contact phone numbers. Patient lives at home alone and reports he is independent in his care. He does daily PD at home. At discharge patient plans to return home and feels this is a safe discharge. CM discussed availability of home health, rehab services, and medical equipment. Patient denied known discharge needs at this time.. . CM will continue to follow and will assist as needed with dc plans/needs. Waiter/Waitress Economy Class: Lidia Leonard DCPIA - Discharge Planning Initial Assessment Updated by [email or web address]: Lidia Leonard on 12/15/18 2:32 pm * Is the patient Alert and Oriented? Yes * How many steps to enter\exit or inside your home? * PCP DR BYRNE IN [place] * Pharmacy [facility] * Preadmission Environment Home with Family * ADLs Independent * Verbal permission to speak to the caregivers and representatives has been obtained from the patient. N/A * Additional services required to return to the preadmission environment? No * Can the patient safely return to the preadmission environment? Yes * Has this patient been hospitalized within the prior 30 days at any hospital? No Patient Name: FAUSTO HOLLAND Page [id number] at 1439 All edits/amendments must be made on the electronic document DICTATION DATE: 12/15/181438 LABEL FUSER TENDER: JOCELYNE 12/15/181438 RPT#: [id number] DC DATE: STATUS: ADM IN [facility] [address] [place] [address] END OF REPORT
--- NOTE | 2018-12-15 15:26 | NUR ---
PD DONE TWICE TODAY, CURRENTLY IN PROCESS RIGHT NOW. HE IS ALERT DENIES ANY S.O.B OR CHEST PAIN TODAY. ALERT ABLE TO VOICE NEEDS. SALINE LOCK INTACT.
[2018-12-15 15:42] VITALS: BP 129/63
--- NOTE | 2018-12-15 20:25 | NUR ---
BEDSIDE REPORT RECIEVED, EVENING ROUNDS COMPLETED. VSS, AAO X4, NO SS OF DISTRESS. FOUND PD ALREADY DRAINED AND COMPLETED, PT PD OUTPUT OF 2500. PT DENIES ANY FURTHER NEEDS AT THIS TIME, CALL LIGHT IN REACH BED IN THE LOWEST POSITION. WILL CPOC.
[2018-12-15 21:12] VITALS: BP 137/80
[2018-12-16] VITALS: BP 163/84
[2018-12-16 04:00] VITALS: BP 171/74
[2018-12-16 06:06] LABS: BASOPHILS 0.8 % (0-2); HEMATOCRIT 26.8 % (42.0-54.0); HEMOGLOBIN 9.3 g/dL (13.5-17.5); IMMATURE GRANULOCYTES 0.5 % (0-5); LYMPHOCYTES 24.5 % (15-50); MCH 30.6 pg (26.0-34.0); MCHC 34.7 g/dL (31.0-37.0); MCV 88.2 fL (80.0-100.0); MEAN PLATELET VOLUME 9.6 fL (7.4-10.4); MONOCYTES 12.1 % (2-11); NEUTROPHILS 59.1 % (40-80); PLATELET COUNT 226 10x3/uL (130-400); RBC 3.04 10x6/uL (4.20-6.10); RDW 14.9 % (11.5-14.5); WBC 10.2 10x3/uL (4.8-10.8)
[2018-12-16 06:19] LABS: ANION GAP 20.5 mmol/L (8-16); CALCIUM 9.2 mg/dL (8.5-10.1); CARBON DIOXIDE 26.2 mmol/L (21.0-32.0); CREATININE - SERUM 13.9 mg/dL (0.6-1.3); POTASSIUM - SERUM 4.7 mmol/L (3.5-5.1)
[2018-12-16 08:45] VITALS: BP 135/67
[2018-12-16] MEDS ORDERED: HYDRALAZINE HCL25 MG PO (09:03)
--- NOTE | 2018-12-16 10:30 | NUR ---
HE C/O BEING DIZZY TO THE POINT HE COULDNT SEE GOOD. HE IS VERY RESTLESS BUT HAS HISTORY OF RESTLESS LEG SYNDROME. VITALS ASSESSED WITH DARIEN B/P OF 110/60 GOOD AND STRONG HR 68 02 SAT 96% ON ROOM AIR. STATES I CANNT DO ANYTHING, I HAVE ASKED HIM TO PLEASE NOT GET UP WITHOUT ASSIST UNTIL HE FEELS BETTER. DARYA LORD HAS CALLED AND STATED HE COULD EAT AND SHE WOULD BE OVER HERE IN ABOUT AN HOUR TO SEE HIM.
[2018-12-16 10:33] VITALS: BP 110/60
--- NOTE | 2018-12-16 10:35 | NUR ---
FSBS IS 144 AT THIS TIME.
--- NOTE | 2018-12-16 11:17 | NUR ---
PD CATH DONE AT THIS TIME SINCE HE IS FEELING BETTER AND MORE LIKE NORMAL. DENIES ANY FURTHER DIZZINESS OR C/O AT THIS TIME. HE DOES HAVE UNCONTROLLED MOVEMENTS MAINLY OF HIS LEGS BUT THIS IS HIS NORMAL.
[2018-12-16 11:29] VITALS: BP 130/73
--- NOTE | 2018-12-16 14:30 | NUR ---
REFUSES HIS PD AT THIS TIME. STATES HE WILL DO IT TONIGHT AT HOME BECAUSE HE IS BEING DISCHARGED LATER.
[2018-12-16 15:05] VITALS: BP 124/69
--- NOTE | 2018-12-16 16:55 | NUR ---
HE WAS DISCHARGED AT THIS TIME WITH INSTRUCTIONS EXPLAINED IN DETAIL TO HIM AND SISTER. HE HAS BLOOD PRESSURE MACHINE AT HOME AND WILL TAKE IT AND KEEP A LOG LIKE DARYA LORD TALKED TO THEM ABOUT. SALINE LOCK D/C WITH CATH INTACT NO BLEEDING NOTED. TELEMETRY RETURNED TO RADIOLOGIC TECHNICIAN. TRANSPORTED TO [facility] DOWN TO PRIVATE AUTO. NO CHANGE IN STATUS NOTED. ABLE TO TRANSFER SELF TO [facility] NO C/O DIZZINESS WITH RECHECK ON B/P 120/72.
--- NOTE | 2018-12-18 09:07 | MORECARE ---
CASE MANAGEMENT DISCHARGE SUMMARY PATIENT: FAUSTO HOLLAND UNIT: [id number] ADM DATE: 12/15/18 AGE: 58 : 58 SEX: M ROOM/BED: D.5585 AUTHOR: ANGEL,DOC PHYSICIAN: REFERRING PHYSICIAN: ANN FERNANDO MD DATE OF SERVICE: 12/18/18 Discharge Plan Patient Name: FAUSTO HOLLAND Facility: [facility]:[place] : 1960 Planned Disposition: Home Anticipated Discharge Date: 12/16/18 Discharge Date: 12/16/2018 Expected LOS: 1 Initial Reviewer: AXEL Initial Review Date: 12/15/2018 Generated: 12/18/18 10:07 am DCP- Discharge Planning Updated by [email or web address]: Lidia Leonard on 12/15/18 1:[address] Patient Name: FAUSTO HOLLAND Admission Status: ER Accout number: [id number] Admission Date: 12-15-2018 : 1960 Admission Diagnosis: Attending: ANN FERNANDO Current LOS: 1 Anticipated DC Date: Planned Disposition: Home Primary Insurance: MEDICARE A & B Discharge Planning Comments: CM met with patient to complete initial dc planning assessment. CM educated patient on the CM role and verbal consent given by patient to complete assessment. CM verified patient's address, phone number, and emergency contact phone numbers. Patient lives at home alone and reports he is independent in his care. He does daily PD at home. At discharge patient plans to return home and feels this is a safe discharge. CM discussed availability of home health, rehab services, and medical equipment. Patient denied known discharge needs at this time.. . CM will continue to follow and will assist as needed with dc plans/needs. Project Lead: Lidia Leonard DCPIA - Discharge Planning Initial Assessment Updated by [email or web address]: Lidia Leonard on 12/15/18 2:32 pm * Is the patient Alert and Oriented? Yes * How many steps to enter\exit or inside your home? * PCP DR BYRNE IN [place] * Pharmacy [facility] * Preadmission Environment Home with Family * ADLs Independent * Verbal permission to speak to the caregivers and representatives has been obtained from the patient. N/A * Additional services required to return to the preadmission environment? No * Can the patient safely return to the preadmission environment? Yes * Has this patient been hospitalized within the prior 30 days at any hospital? No Last DP export: 12/15/18 1:39 p Patient Name: FAUSTO HOLLAND Page [phone] at 0907 All edits/amendments must be made on the electronic document DICTATION DATE: 12/18/18906 ORNAMENTER: JOCELYNE 12/18/18906 RPT#: [id number] DC DATE:12/16/18 STATUS: DIS IN [facility] [address] [place] [address] END OF REPORT
== END 2018-12-16 16:55 | disposition home or self-care (01) | DRG 682 ==
LOC: D.ER 05:32 → OBSVTIME 06:02 → D.M2 06:02
PROVIDERS: Emergency Medicine; Internal Medicine; ADMIT Internal Medicine Nephrology; ATTEND Internal Medicine Nephrology
DX: I12.0 Hypertensive chronic kidney disease with stage 5 chronic kidney disease or end stage renal disease (principal); N18.6 End stage renal disease; E87.1 Hypo-osmolality and hyponatremia; N25.81 Secondary hyperparathyroidism of renal origin; E11.22 Type 2 diabetes mellitus with diabetic chronic kidney disease; Z99.2 Dependence on renal dialysis; D64.9 Anemia, unspecified; E87.5 Hyperkalemia; E78.5 Hyperlipidemia, unspecified; Z86.73 Personal history of transient ischemic attack (TIA), and cerebral infarction without residual deficits; E03.9 Hypothyroidism, unspecified; K21.9 Gastro-esophageal reflux disease without esophagitis; E11.42 Type 2 diabetes mellitus with diabetic polyneuropathy; E83.39 Other disorders of phosphorus metabolism; R79.89 Other specified abnormal findings of blood chemistry